=== PATIENT | male | born 1985 | race Two or more races ===

== ENCOUNTER → 2020-11-21 | Day surgery (SDC) | payer BC ==
[~2020-11-21] VITALS: Ht 177.8 cm; Wt 61.2 kg
[2020-11-21] VITALS (9 sets, daily range): BP systolic 108–126; BP diastolic 65–79
[~2020-11-21] MED LIST: FAMOTIDINE20 MG ORAL; LR 1000ml 1,000 ML IVLG SCH; Midazolam 2mg/2ml Inj ONE; fentaNYL 100 mcg/2 mL IV ONE; fentaNYL 100 mcg/2 mL IV PRN
--- NOTE | 2020-11-21 07:38 | Anethesia Preoperative Eval ---
Anesthesia Pre-op PMH/ROS General Date of Evaluation: Nov 21, 2020 Time of Evaluation: 07:36 Anesthesiologist: Michell ASA Score: ASA 2 Mallampati Score Class I : Soft palate, uvula, fauces, pillars visible Class II: Soft palate, uvula, fauces visible Class III: Soft palate, base of uvula visible Class IV: Only hard plate visible Mallampati Classification: Class II Surgeon: Martha Diagnosis: Abdominal pain Surgical Procedure: EGD Colonoscopy Anesthesia History: none Family History: no anesthesia problems Allergies: Coded Allergies: CIPROFLOXACIN (Verified Adverse Reaction, Intermediate, "not feeling well", 11/21/20) Medications: see eMAR Patient NPO?: Yes Past Medical History Cardiovascular: Denies: HTN, CAD, ID, valve dz, arrhythmia, other Pulmonary: Denies: asthma, COPD, JACI, other Gastrointestinal/Genitourinary: Reports: GERD; Denies: CRI, ESRD, other Neurologic/Psychiatric: Reports: depression/anxiety; Denies: dementia, CVA, TIA, other Endocrine: Denies: DM, hypothyroidism, steroids, other HEENT: Denies: cataract (L), cataract (R), glaucoma, [place] (L), [place] (R), other Hematology/Immune: Denies: anemia, DVT, bleeding disorder, other Musculoskeletal/Integumentary: Denies: OA, RA, DJD, DDD, edema, other PMH Narrative: as above PSxH Narrative: See H&P Anesthesia Pre-op Phys. Exam Physician Exam Last Vital Signs Date Time Temp Pulse Resp B/P (MAP) Pulse Ox O2 Delivery O2 Flow Rate FiO2 11/21/20 07:12 Room Air 11/21/20 07:05 98.2 72 18 126/70 100 Constitutional: NAD Neurologic: CN 2-12 intact Cardiovascular: RRR, no M/R/G Respiratory: CTA Gastrointestinal: S/NT/ND Airway Exam Mallampati Score: Class II MO: full Neck: flexible ROM: full Teeth: intact Dentures: no upper, no lower Anesthesia Pre-op A/P Risk Assessment & Plan Assessment: ASA 2 Plan: MAC Status Change Before Surgery: No Rey Galarza MD Nov 21, 2020 07:38
--- NOTE | 2020-11-21 07:52 | Short Stay Surgery H&P ---
History of Present Illness History of Present Illness Chief Complaint see attached HPI Joaquim Madrigalgeorgia Frank is a 35 year old male who was admitted on for Blood In Stool Patient History Allergies: Coded Allergies: CIPROFLOXACIN (Verified Adverse Reaction, Intermediate, "not feeling well", 11/21/20) Medication History Scheduled Famotidine* (Pepcid 20mg tablet*), 20 MG ORAL DAILY, (Reported) Physical Exam Vital Signs Last Vital Signs Date Time Temp Pulse Resp B/P (MAP) Pulse Ox O2 Delivery O2 Flow Rate FiO2 11/21/20 07:12 Room Air 11/21/20 07:05 98.2 72 18 126/70 100 Plan Attestation Are the patient's medical conditions optimized for surgery? Marsha Vieyra MD Nov 21, 2020 07:52
--- NOTE | 2020-11-21 07:53 | Pre-Procedure Note/Attestation ---
Pre-Procedure Note/Attestation Complete Prior to Procedure Planned Procedure: not applicable Procedure Narrative: esophagogastroduodenoscopy colon Indications for Procedure Pre-Operative Diagnosis: Heme (+) Attestation I attest that I discussed the nature of the procedure; its benefits; risks and complications; and alternatives (and the risks and benefits of such alternatives), prior to the procedure, with the patient (or the patient's legal publications sales representative). I attest that, if there was a reasonable possibility of needing a blood transfusion, the patient (or the patient's legal publications sales representative) was given the [facility] standardized written summary, pursuant to the [place] Blood Safety Act ([place] Health and Safety Code # 1645, as amended). I attest that I re-evaluated the patient just prior to the surgery and that there has been no change in the patient's H&P, except as documented below: Marsha Vieyra MD Nov 21, 2020 07:53
--- NOTE | 2020-11-21 08:27 | Brief Operative Note ---
Immediate Post Operative Note Operative Note Pre-op Diagnosis: Heme (+) Specimen: yes Complications: none Fluids: Per anesthesia Implant(s) used?: No Marsha Vieyra MD Nov 21, 2020 08:27
--- NOTE | 2020-11-21 08:27 | Endoscopy Procedure Note ---
Endoscopy Procedure Note General Indication for Procedure: Heme (+) Procedures Performed: EGD, colonoscopy Specimen: yes Anesthesia Anesthesiologist: Terence Anesthesia: MAC Inserted Devices Implant(s) used?: No GI Core Measures 50 yrs or older w/o bx or poly: Not Applicable 10yrs. F/U recommended: Not Applicable Marsha Vieyra MD Nov 21, 2020 08:27
--- NOTE | 2020-11-21 08:34 | Immediate Post-Op Evaluation ---
Immediate Post-Op Evalulation Immediate Post-Op Evalulation Procedure: EGD Colonoscopy Date of Evaluation: Nov 21, 2020 Time of Evaluation: 08:33 IV Fluids: 800 Blood Products: none Estimated Blood Loss: none Urinary Output: none Blood Pressure Systolic: 114 Blood Pressure Diastolic: 76 Pulse Rate: 68 Respiratory Rate: 18 O2 Sat by Pulse Oximetry: 99 Temperature (Fahrenheit): 97.6 Pain Score (1-10): 1 Nausea: No Vomiting: No Complications none Patient Status: awake, patent, none Hydration Status: adequate Rey Galarza MD Nov 21, 2020 08:34
--- NOTE | 2020-11-21 09:06 | 48 Hour Post Anesthesia Eval ---
Post Anesthesia Evaluation Procedure: EGD Colonoscopy Date of Evaluation: Nov 21, 2020 Time of Evaluation: 09:05 Blood Pressure Systolic: 112 0: 76 Pulse Rate: 68 Respiratory Rate: 20 Temperature (Fahrenheit): 97.6 O2 Sat by Pulse Oximetry: 98 Airway: patent Nausea: No Vomiting: No Pain Intensity: 1 Hydration Status: adequate Cardiopulmonary Status: stable Mental Status/LOC: patient returned to baseline Follow-up Care/Observations: n/a Post-Anesthesia Complications: none Follow-up care needed: ready to discharge Rey Galarza MD Nov 21, 2020 09:06
--- NOTE | 2020-11-21 09:14 | Procedure Note ---
DATE OF PROCEDURE: 11/21/2020 GASTROENTEROLOGY PROCEDURE REPORT PROCEDURE: Upper gastrointestinal endoscopy with biopsy as well as colonoscopy with biopsy. SURGEON: Marsha Vieyra MD. ANESTHESIOLOGIST: Rey Galarza MD. PRE-ENDOSCOPIC DIAGNOSIS: Heme-positive stools. POST-ENDOSCOPIC DIAGNOSES: 1. Mild bile reflux in the stomach. 2. Three duodenal diverticula. 3. Otherwise, normal visual examination of the upper and lower GI tract, status post multiple biopsies as described below. DESCRIPTION OF PROCEDURE: The procedure its risks, indications, alternatives, and possible complications were explained to the patient and informed consent was obtained. The patient was then sedated in the left lateral decubitus position. A diagnostic upper endoscope was introduced into oropharynx and advanced to the duodenum. The endoscope was then gradually withdrawn and the mucosa examined carefully. The patient was then turned around. A rectal exam was done. The colonoscope was introduced in the rectum and advanced to 15 cm into the terminal ileum. The colonoscope was then gradually withdrawn and the mucosa examined carefully. Random biopsies of the duodenum, antrum, lower esophagus, mid esophagus, terminal ileum, right side of the colon and left side of the colon were sent to pathology for review. The colonoscope was removed and the patient was sent to recovery in good condition. COMPLICATIONS: None. ASSESSMENT: There were no findings on this examination visually to explain the patient's symptoms. Biopsies will be evaluated to the check for microscopic disease. The findings of mild bile reflux in the stomach and three duodenal diverticula are not likely of clinical significance. RECOMMENDATIONS: 1. Followup biopsy results. 2. Outpatient followup. Marsha Vieyra M.D. DR: Miky JOB#: [id number] CC: Marsha Vieyra M.D.; Fax#: [phone]
== END | disposition home or self-care (01) ==
LOC: GAS 06:41
DX: K57.90 Diverticulosis of intestine, part unspecified, without perforation or abscess without bleeding (principal); K21.9 Gastro-esophageal reflux disease without esophagitis; Z88.8 Allergy status to other drugs, medicaments and biological substances; F32.9 Major depressive disorder, single episode, unspecified; F41.9 Anxiety disorder, unspecified; K29.50 Unspecified chronic gastritis without bleeding; K52.9 Noninfective gastroenteritis and colitis, unspecified
CPT/HCPCS: 43239; 45380; J2250; J3010; U0004